=== PATIENT | female | born 1970 | race Two or more races ===

== ENCOUNTER 2020-12-27 13:23 | Outpatient (CLI) | payer MEDICAID ==
[~2020-12-27] VITALS: Ht 165.1 cm; Wt 61.2 kg
[2020-12-27 13:50] VITALS: BP 109/74
[2020-12-27] MEDS ORDERED: VITAMIN B PO (13:53)
--- NOTE | 2020-12-27 15:14 | Consultation ---
DATE OF CONSULTATION: 12/27/2020 CHIEF COMPLAINT: Referral for screening colonoscopy. PAST MEDICAL HISTORY: 1. Depression. 2. Migraine headaches. PAST SURGICAL HISTORY: Breast lump removal. MEDICATIONS: Please see medication reconciliation list. FAMILY HISTORY: Colon cancer grandfather. Mother had breast cancer. SOCIAL HISTORY: The patient denies any IV drug abuse or tobacco abuse. She only drinks socially. ALLERGIES: No known drug allergies. REVIEW OF SYSTEMS: Negative. PHYSICAL EXAMINATION: VITAL SIGNS: Temperature 97.4, blood pressure 109/74, pulse is , respirations 20. HEENT: Normocephalic and atraumatic. Sclerae anicteric. NECK: Supple. No evidence of obvious lymphadenopathy. CARDIOVASCULAR: Regular rate and rhythm. Plus S1, S2. LUNGS: Clear to auscultation bilaterally. ABDOMEN: Positive bowel sounds. Soft and nontender. No rebound. No guarding. No peritoneal sign. EXTREMITIES: No cyanosis, no clubbing, no edema. ASSESSMENT AND PLAN: This is a 50-year-old female referred for screening colonoscopy. The patient was given instruction for colonoscopy. Risks and benefits of procedure was explained to her. We will schedule her as soon as authorization is obtained. Conrado You M.D. DR: Vivi JOB#: [id number] CC:
== END 2020-12-27 15:23 | disposition home or self-care (01) ==
LOC: PAN 13:23
DX: Z00.00 Encounter for general adult medical examination without abnormal findings (principal); Z80.0 Family history of malignant neoplasm of digestive organs; F32.9 Major depressive disorder, single episode, unspecified
CPT/HCPCS: 99203